=== PATIENT | female | born 1965 | race Caucasian/White ===

== ENCOUNTER 2017-06-08 12:09 | Emergency (ER) | payer MEDICARE, MEDICAID ==
[~2017-06-08] VITALS: Ht 167.6 cm; Wt 57.0 kg
[~2017-06-08 12:09] MED LIST: ALBU8.5H4 PO; BACL10TA PO; CLON-529 PO; DICL-194 PO; DICY10CA88 PO; LISI-222 PO; LOXA50CA PO; MEDR10TA10 PO; PREG75CA30 PO
[2017-06-08 12:29] VITALS: BP 104/72
== END 2017-06-08 12:56 | disposition home or self-care (01) ==
LOC: ER 12:09
DX: L40.9 Psoriasis, unspecified (principal); I10 Essential (primary) hypertension; J44.9 Chronic obstructive pulmonary disease, unspecified; G89.29 Other chronic pain; F15.10 Other stimulant abuse, uncomplicated; Z86.14 Personal history of Methicillin resistant Staphylococcus aureus infection; Z86.19 Personal history of other infectious and parasitic diseases; Z56.0 Unemployment, unspecified; Z88.8 Allergy status to other drugs, medicaments and biological substances; Z79.899 Other long term (current) drug therapy
CPT/HCPCS: 99284